=== PATIENT | female | born 1980 | race Two or more races ===

== ENCOUNTER 2024-11-03 07:47 | Outpatient (CLI) | payer OTHER | END 2024-11-03 07:48 | disposition home or self-care (01) | LOC: NUCLEAR 07:47 → EDBD 07:47 → NUCLEAR 07:48 | PROVIDERS: ATTEND Internal Medicine Sports Medicine | DX: C73 Malignant neoplasm of thyroid gland (principal) ==

== ENCOUNTER 2024-11-07 12:48 | Outpatient (CLI) | payer OTHER | END 2024-11-07 12:51 | disposition home or self-care (01) | LOC: NUCLEAR 12:48 | PROVIDERS: ATTEND Internal Medicine Sports Medicine | DX: C73 Malignant neoplasm of thyroid gland (principal) ==